=== PATIENT | male | born 1960 | race African-American/Black ===

== ENCOUNTER 2024-09-24 03:57 | Inpatient (IN) | payer MEDICARE, MEDICAID ==
[~2024-09-24] VITALS: Ht 172.7 cm; Wt 77.1 kg
[2024-09-24 06:33] LABS: CHLORIDE 108 mEq/L (98-107); POTASSIUM 3.6 mEq/L (3.5-5.1); SODIUM 144 mEq/L (136-145)
[2024-09-24 06:34] LABS: CARBON DIOXIDE 27 mEq/L (21-32)
[2024-09-24 06:35] LABS: CALCIUM 9.5 mg/dL (8.7-10.4)
[2024-09-24 06:39] LABS: CREATININE 0.8 mg/dL (0.6-1.3); GLUCOSE 91 mg/dL (70-105); UREA NITROGEN BLOOD 14 mg/dL (9-23)
[2024-09-24 06:45] LABS: BASOPHILS % 0.5 % (0.0-2.0); EOSINOPHILS % 2.8 % (0.0-5.0); HEMATOCRIT. 41.2 % (42.0-52.0); HEMOGLOBIN. 13.4 g/dL (14.0-18.0); LYMPHOCYTES % 35.2 % (20.0-50.0); MEAN CORPUSCULAR HEMOGLOBIN 27.9 pg (28.0-32.0); MEAN CORPUSCULAR HGB CONC 32.6 g/dL (31.0-37.0); MEAN CORPUSCULAR VOLUME 85.5 fL (80.0-94.0); MEAN PLATELET VOLUME 7.6 fl (7.4-10.4); NEUTROPHILS % 50.5 % (40.0-76.0); PLATELET 154 x1000/uL (130-400); RED BLOOD CELL COUNT 4.82 mill/uL (4.7-6.1); RED CELL DISTRIBUTION WIDTH 13.6 % (11.6-14.6); WHITE BLOOD COUNT 2.5 x1000/uL (4.5-11.0)
[2024-09-24 08:02] LABS: TROPONIN I HIGH SENSITIVITY 116 ng/L (3.0-53)
[2024-09-24] MEDS: KETOROLAC 15MG/ML VIAL IV NR (08:52)
[2024-09-24] MEDS ORDERED: ONDANSETRON HCL 4MG/2ML INJ IV PRN (09:30)
[2024-09-24] MEDS ORDERED: ACETAMINOPHEN 325MG TABLET PO PRN (09:30)
[2024-09-24 10:09] LABS: TROPONIN I HIGH SENSITIVITY 110 ng/L (3.0-53)
[2024-09-24 16:00] VITALS: BP 123/90; PULSE 61; RESP 20; TEMP 37; O2SAT 100
[2024-09-24 16:04] VITALS: BP 130/75; PULSE 75; RESP 18; TEMP 36.9
[2024-09-24 18:56] VITALS: BP 123/90; PULSE 61; TEMP 98.6; O2SAT 100
[2024-09-24 20:00] VITALS: BP 153/54; PULSE 76; RESP 19; TEMP 36.4; O2SAT 100
[2024-09-25] VITALS: BP 155/54; PULSE 76; RESP 19; TEMP 36.4; O2SAT 100
[2024-09-25 04:00] VITALS: BP 125/72; PULSE 53; RESP 19; TEMP 36.4; O2SAT 100
[2024-09-25 08:00] VITALS: BP 144/90; PULSE 66; RESP 20; TEMP 36.8; O2SAT 99
[2024-09-25] MEDS: ASPIRIN 81MG TABLET PO SCH (10:13)
[2024-09-25 12:00] VITALS: BP 121/77; PULSE 66; RESP 20; TEMP 36.7; O2SAT 100
[2024-09-26] VITALS: BP 121/76; PULSE 65; RESP 20; TEMP 36.1; O2SAT 98
[2024-09-26 04:00] VITALS: BP 130/74; PULSE 66; RESP 20; TEMP 36.1; O2SAT 98
[2024-09-26 08:00] VITALS: BP 135/98; PULSE 60; RESP 19; TEMP 36.5; O2SAT 96
[2024-09-27 12:00] VITALS: BP 139/60; PULSE 64; RESP 16; TEMP 36.6
[2024-09-27] MEDS: GABAPENTIN 300MG CAPSULE PO SCH (13:35)
[2024-09-27] MEDS: APIXABAN 5 MG TABLET PO SCH (13:35)
[2024-09-27] MEDS: AMLODIPINE 5MG TABLET PO SCH (13:35)
[2024-09-27 16:00] VITALS: BP 123/62; PULSE 64; TEMP 36.5
[2024-09-27 20:00] VITALS: BP 121/72; PULSE 53; RESP 16; TEMP 36.5
[2024-09-28 04:00] VITALS: BP 116/73; PULSE 46; RESP 19; TEMP 36.2; O2SAT 100
[2024-09-28 08:00] VITALS: BP 122/79; PULSE 50; RESP 18; TEMP 36.4; O2SAT 98
[2024-09-28 12:00] VITALS: BP 113/68; PULSE 50; RESP 16; TEMP 36.4; O2SAT 96
[2024-09-28 16:00] VITALS: BP 120/75; PULSE 50; RESP 16; TEMP 36.6; O2SAT 97
[2024-09-28 20:00] VITALS: BP 124/64; PULSE 60; RESP 18; TEMP 36.5; O2SAT 97
[2024-09-29 04:00] VITALS: PULSE 49; RESP 18; TEMP 36.9; O2SAT 96
[2024-09-29 08:00] VITALS: BP 127/77; PULSE 48; RESP 18; TEMP 36.5; O2SAT 95
[2024-09-29] MEDS: THIAMINE HCL 100MG TABLET PO SCH (10:28)
[2024-09-29] MEDS: CALCIUM 1250MG TABLET (500MG ELEMENTAL CALCIUM) PO SCH (10:59)
[2024-09-29 12:00] VITALS: BP 121/69; PULSE 50; RESP 19; TEMP 36.4; O2SAT 95
[2024-09-29 13:28] LABS: BASOPHILS % 0.7 % (0.0-2.0); EOSINOPHILS % 3.9 % (0.0-5.0); HEMOGLOBIN. 12.9 g/dL (14.0-18.0); LYMPHOCYTES % 37.9 % (20.0-50.0); MEAN CORPUSCULAR HEMOGLOBIN 28.3 pg (28.0-32.0); MEAN CORPUSCULAR VOLUME 85.8 fL (80.0-94.0); MEAN PLATELET VOLUME 7.7 fl (7.4-10.4); NEUTROPHILS % 49.5 % (40.0-76.0); PLATELET 162 x1000/uL (130-400); RED BLOOD CELL COUNT 4.55 mill/uL (4.7-6.1); RED CELL DISTRIBUTION WIDTH 13.6 % (11.6-14.6); WHITE BLOOD COUNT 2.1 x1000/uL (4.5-11.0)
[2024-09-29 13:43] LABS: CARBON DIOXIDE 27 mEq/L (21-32); CHLORIDE 108 mEq/L (98-107); POTASSIUM 3.7 mEq/L (3.5-5.1); SODIUM 141 mEq/L (136-145)
[2024-09-29 13:44] LABS: CALCIUM 9.3 mg/dL (8.7-10.4)
[2024-09-29 13:49] LABS: CREATININE 0.9 mg/dL (0.6-1.3); GLUCOSE 137 mg/dL (70-105); UREA NITROGEN BLOOD 17 mg/dL (9-23)
[2024-09-29 13:50] LABS: THYROID STIMULATING HORMONE 0.32 uIU/mL (0.55-4.78)
[2024-09-29 16:00] VITALS: BP 122/75; PULSE 47; RESP 20; TEMP 36.8; O2SAT 96
[2024-09-29 20:00] VITALS: BP 114/74; PULSE 48; RESP 19; TEMP 36.5; O2SAT 100
[2024-09-30 04:00] VITALS: BP 120/78; PULSE 78; RESP 19; TEMP 36.3; O2SAT 98
[2024-09-30 08:00] VITALS: BP 122/69; PULSE 61; RESP 19; TEMP 36.4; O2SAT 99
[2024-09-30 12:00] VITALS: BP 137/82; PULSE 90; RESP 20; TEMP 37.1; O2SAT 100
[2024-09-30 16:00] VITALS: BP 138/89; PULSE 64; RESP 19; TEMP 36.7; O2SAT 100
[2024-09-30 19:08] VITALS: BP 138/89; PULSE 54; TEMP 98.1; O2SAT 100
== END 2024-09-30 22:58 | DRG 291 ==
LOC: ER 03:57 → 5WST 05:02 → EDBEDREQ 05:20 → EDBEDREQTM 05:20 → 8EST 09-26 18:31
PROVIDERS: ADMIT Internal Medicine; ATTEND Internal Medicine
DX: I11.0 Hypertensive heart disease with heart failure (principal); I50.33 Acute on chronic diastolic (congestive) heart failure; I44.0 Atrioventricular block, first degree; R00.2 Palpitations; D72.819 Decreased white blood cell count, unspecified; I25.2 Old myocardial infarction; R00.1 Bradycardia, unspecified; J45.909 Unspecified asthma, uncomplicated; Z86.73 Personal history of transient ischemic attack (TIA), and cerebral infarction without residual deficits
CPT/HCPCS: 36415; 71045; 80048; 83880; 84443; 84484; 85025; 85379; 93005; 93306; 99285; A4606; A4663; J1885